=== PATIENT | female | born 1960 | race Hispanic/Latino ===

== ENCOUNTER 2019-10-07 18:36 | Emergency (ER) | payer BC, SELFPAY ==
[2019-10-07 18:55] VITALS: BP 168/58; PULSE 68; RESP 16; TEMP 36.7; O2SAT 98; BMI 24.1
--- NOTE | 2019-10-07 19:21 | ED.ALLEREA ---
HPI - Allergic Reaction General Chief complaint: Allergic Reaction Stated complaint: trouble breathing, nose congested, neck swelling Time Seen by Provider: 10/07/19 19:16 Source: patient and family Mode of arrival: Ambulatory Limitations: no limitations History of Present Illness HPI narrative: 59F former smoker with history of small intestine bacterial overgrowth and chronic abdominal pain presents at the request of her primary care provider, with her for evaluation of neck swelling, trouble swallowing, and trouble breathing yesterday but is slightly improved today. She states that she has been having swelling of her neck for about a month and denies any obvious allergic triggers such as new medications, foods, pets or other. She states that at times the swelling causes pain to radiate up into her ears. She denies any rash. She has chronic abdominal pain that has been evaluated very thoroughly since initially presenting a few years ago. She has had CT scans, evaluations with Gastroenterology, pills studies among other. She states that currently her pain is largely on the left side of her abdomen and is associated with bloating and very episodes of diarrhea and at times constipation. She is frequently nauseated but denies vomiting today. Related Data Allergies Allergy/AdvReac Type Severity Reaction Status Date / Time No Known Drug Allergies Allergy Verified 10/07/19 19:02 Review of Systems Constitutional Constitutional: Denies chills, Denies fatigue, Denies fever(s), Denies frequent falls, Denies lethargy and Denies weakness Eyes Eyes: Denies change in vision, Denies eye discharge, Denies irritation and Denies loss of vision ENT Ears, Nose, Mouth, and Throat: Denies change in voice, Denies dizziness, Denies neck pain, Denies sore throat and Denies throat swelling Cardiovascular Cardiovascular: Denies chest pain, Denies irregular heart rhythm, Denies lightheadedness, Denies palpitations, Denies dyspnea, Denies dyspnea on exertion and Denies orthopnea Respiratory Respiratory: Denies cough, Denies dyspnea, Denies dyspnea on exertion and Denies wheezing Gastrointestinal Gastrointestinal: Denies abdominal pain, Denies change in bowel habits, Denies diarrhea, Denies nausea and Denies vomiting Musculoskeletal Musculoskeletal: Denies neck pain and Denies numbness Integumentary/Breasts Skin/Breast: Denies pruritus, Denies erythema, Denies rash and Denies wounds Neurologic Neurologic: Denies behavioral changes, Denies confusion, Denies dizziness, Denies frequent falls, Denies loss of vision, Denies numbness and Denies weakness Psychiatric Psychiatric: Denies anxiety, Denies behavioral changes, Denies confusion, Denies depression, Denies homicidal ideation and Denies suicidal ideation Endocrine Endocrine: Denies fatigue, Denies flushing and Denies palpitations Hematologic/Lymphatic Hematologic/Lymphatic: Denies easy bruising Allergic/Immunologic Allergic/Immunologic: Denies urticaria, Denies throat swelling and Denies wheezing Patient History Social History Smoking Status: Former smoker Smoking Status: Former smoker alcohol intake frequency: 0-2 drinks per day Substance Use Type: marijuana Exam Narrative Exam Narrative: GENERAL: [59] year old patient appears stated age. Well-nourished, well-developed patient, in mild distress. GCS 15 HEAD: Atraumatic. Normocephalic. EYES: Pupils equal round and reactive. Extraocular motions intact. No scleral icterus. No injection or drainage. ENT: Nose without bleeding, purulent drainage. Throat without erythema, tonsillar hypertrophy or exudate. Airway patent. NECK: Trachea midline. Mildly tender with visible swelling an anterior lymphadenopathy CARDIOVASCULAR: Regular rate and rhythm without murmurs, gallops, or rubs. RESPIRATORY: Clear to auscultation. Breath sounds equal bilaterally. No wheezes, rales, or rhonchi. GASTROINTESTINAL: Abdomen soft, moderate tenderness in the left lower quadrant, nondistended. Bloating EXTREMITIES: No edema or joint tenderness. BACK: Nontender without deformity or crepitance. No flank tenderness. NEURO: AOx3. SKIN: No rash or erythema of visible areas Initial Vital Signs Initial Vital Signs: Vital Signs Temperature 98.0 F 10/07/19 18:55 Pulse Rate 68 10/07/19 18:55 Respiratory Rate 16 10/07/19 18:55 Blood Pressure 168/58 H 10/07/19 18:55 Pulse Oximetry 98 10/07/19 18:55 Course Orders Ordered: Discontinued Medications Dexamethasone (Decadron) 10 mg IV NOW ONE Stop: 10/07/19 19:34 Last Admin: 10/07/19 19:44 Dose: 10 mg Documented by: MMCFARL Sodium Chloride (Normal Saline 0.9%) 1,000 mls @ 1,000 mls/hr IV BOLUS ONE Stop: 10/07/19 20:32 Last Infusion: 10/07/19 20:58 Dose: 0 mls/hr Documented by: Admin: 10/07/19 19:44 Dose: 1,000 mls/hr Documented by: LAURIE Vital Signs Vital signs: Vital Signs - 8 hr 10/07/19 18:55 Temperature 98.0 F Pulse Rate 68 Respiratory Rate 16 Blood Pressure 168/58 H Pulse Oximetry 98 MDM - Allergic Reaction Lab Data Result diagrams: 10/07/19 19:20 10/07/19 19:20 Labs: Lab Results 10/07/19 10/07/19 Range/Units 19:20 19:20 WBC 8.3 (4.5-11.0) X10^3/uL RBC 4.04 (4.0-5.2) X10^6/uL Hgb 13.0 (12.0-16.0) g/dL Hct 37.7 (36-46) % MCV 93.3 (80-100) fL MCH 32.2 (26-34) PG MCHC 34.5 (30-36) % RDW 12.6 (11.6-14.8) % Plt Count 258 (150-400) X10^3/uL Neut % (Auto) 53.4 (50-75) % Lymph % (Auto) 39.8 (25-40) % [place] % (Auto) 4.8 (3-14) % Eos % (Auto) 1.5 L (2-4) % Baso % (Auto) 0.5 (0-2) % Neut # (Auto) 4400 (6091-0188) /uL Lymph # (Auto) 3300 (5705-3901) /uL [place] # (Auto) 400 (0-900) /uL Eos # (Auto) 100 (0-450) /uL Baso # (Auto) 0 (0-100) /uL Sodium 138 (137-145) mmol/L Potassium 3.9 (3.4-5.1) mmol/L Chloride 105 (98-107) mmol/L Carbon Dioxide 25 (22-32) mmol/L BUN 16 (7-17) mg/dL Creatinine 0.76 (0.52-1.04) mg/dL Estimated GFR > 60.0 (>60) mL/min BUN/Creatinine Ratio 21.1 (6-22) Glucose 88 (70-100) mg/dL Calcium 9.9 (8.4-10.2) mg/dL Total Bilirubin 0.4 (0.2-1.3) mg/dL AST 25 (14-36) IU/L ALT 18 (<35) IU/L Alkaline Phosphatase 70 (38-126) U/L NT-Pro-B Natriuret Pep 118 (<125) pg/mL Total Protein 7.9 (6.3-8.2) g/dL Albumin 4.5 (3.5-5.0) g/dL Globulin 3.4 (1.7-4.1) g/dL Albumin/Globulin Ratio 1.3 (1.0-2.8) Lipase 251 (23-300) U/L Urine Dip Bedside Urine Glucose Negative Bedside Urine Bilirubin - Negative Bedside Urine Ketone - Negative Urine Specific [place] 1.010 Bedside Urine Occult Blood - Negative Bedside Urine pH 6.0 Bedside Urine Protein - Negative Bedside Urine Urobilinogen - Negative Bedside Urine Nitrite - Negative Bedside Urine Leukocytes - Negative Esterase Imaging Data Soft Tissue Neck CT: Radiologist's Impression: Chart Viewer Diagnostics DATE TYPE STATUS REF RANGE/AUTHOR Hx 10/07/19 19:33 Julio C Julio 10/07/19 19:33 Julio C Julio Lucrecia 59, F0 1960 [facility], [facility] ED 165.1cm 65.771kg BMI: 24.1kg/m? Allergic Reaction Search Chart No Data to Display No Data to Display ONSET 10/07/19 21:10 Lizzy Sellers 59 F 1960 [place] [address] CT Scan Report Signed Patient: Kenneth SellersDlae#: [id number] : 1960Acct:[id number] Age/Sex: 59 / FDate of Service: 10/07/19 Loc: ED Accession Number: [id number] Procedure: CT soft tissue neck w con Ordering Provider: Tyrone Ricketts D.O. PROCEDURE: CT SOFT TISSUE NECK W CON INDICATIONS: painful swelling of neck, trouble swallowing, breathing TECHNIQUE: After the administration of intravenous contrast, 3.0 mm axial sections acquired from the sella to the aortic arch. Additional oblique axial 3.0 mm sections acquired through the pharynx. 3 mm thick coronal and sagittal reformats were generated. For radiation dose reduction, the following was used: automated exposure control. COMPARISON: [facility], CT, CT CHEST ABD PEL W CON, 10/07/2019, 19:37. FINDINGS: Image quality: Excellent. Lymph nodes: There is a slightly greater than expected number of numerous prominent but not threshold enlarged lymph nodes suggesting shotty reactive lymphadenopathy. There is no threshold enlarged or overtly pathologic lymph nodes by CT size criteria. Vessels: Visualized vasculature appears patent. Neck spaces: The oropharynx, nasopharynx, and pharynx demonstrate no mucosal lesions. The vocal cords, false vocal cords, pyriform sinuses, epiglottis, vallecula, and tongue base all appear normal. Extramucosal spaces appear unremarkable. Glands: There is subjective prominence of the bilateral parotid glands, corresponding in location to the BB markers placed by the research technologist denoting the patient's area of neck swelling bilaterally. Submandibular glands are unremarkable. Right thyroid lobe nodule measuring approximately 1.4 cm. Miscellaneous: Visualized brain and orbits appear normal. Lung apices appear clear. Superficial soft tissues appear normal. Bones: No suspicious bony lesions. Visualized sinuses and mastoids appear unremarkable. IMPRESSION: 1. Subjective low-density infiltration with enlargement of the bilateral parotid glands with no discrete mass or adjacent inflammatory changes. Findings are likely reflective of Sjogren syndrome, sarcoidosis, or some other systemic process. Consider rheumatology referral. 2. Shotty lymphadenopathy in the bilateral neck is likely related, although follow-up to document clinical stability/resolution is recommended to help exclude a less likely but potential lymphoproliferative disorder. Dictated by: Julio C Julio M.D. on 10/07/2019 at 20:04 Approved by: Julio C Julio M.D. on 10/07/2019 at 20:11 CT scan - chest: Radiologist's Impression: Lizzy Sellers 59 F [address] [address] [address] Scan Report Signed Patient: Talita Sellers#: [id number] : 1960Acct:[id number] Age/Sex: 59 / FDate of Service: 10/07/19 Loc: ED Accession Number: [id number] Procedure: CT chest abd pel w con Ordering Provider: Tyrone Ricketts D.O. PROCEDURE: CT CHEST ABD PEL W CON INDICATIONS: Shortness of breath, left flank pain TECHNIQUE: After the administration of intravenous contrast, 5 mm thick sections acquired from the lung apices to the symphysis. 2.5 mm thick coronal and sagittal reformats were acquired. Additional 7 mm thick coronal maximum intensity projection (MIP) reformats acquired through the lungs. Optional 10-minute delayed imaging may be performed from the kidneys to the bladder. For radiation dose reduction, the following was used: automated exposure control, adjustment of mA and/or kV according to patient size. COMPARISON: None. FINDINGS: Image quality: Excellent. CHEST: Central airways, lungs, and pleural spaces are clear. The heart and mediastinal vascular structures are within normal limits. There is no thoracic lymphadenopathy. Thoracic osseous structures unremarkable. ABDOMEN: Normal CT appearance of the liver, spleen, pancreas, gallbladder, adrenal glands, and kidneys. No acute interrogate abnormality. No free fluid or pneumoperitoneum. Nonaneurysmal abdominal aorta. No intra-abdominal or retroperitoneal lymphadenopathy. Regional osseous structures unremarkable. PELVIS: No free pelvic fluid. Unremarkable uterus, adnexa, and urinary bladder. No threshold enlarged pelvic or inguinal lymph node. Regional osseous structures unremarkable. IMPRESSION: No acute finding or abnormality to explain left flank pain. Dictated by: Julio C Julio M.D. on 10/07/2019 at 20:12 Approved by: Julio C Julio M.D. on 10/07/2019 at 20:14 [facility] Narrative Medical decision making narrative: Multiple etiologies for patient's symptoms considered including: [Lymphoma versus retropharyngeal abscess versus hematoma versus allergic reaction versus other] Patient's symptoms improved or duration of stay with above-stated therapies. Findings and discharge diagnosis discussed with patient/family followed by verbalization of understanding Return precautions discussed with patient/family whom verbalize understanding. Discharge Plan Departure Patient Disposition: Home Clinical Impression: Adenopathy, cervical, Abdominal pain, chronic, generalized Discharge Date/Time: 10/07/19 21:10 Instructions: DI for Abdominal Pain-Adult, DI for Lymphadenopathy Activity Restrictions/Additional Instructions: *You have been diagnosed with [swollen lymph nodes in your neck] *What to do: *Follow up with your primary care provider in 2-3 days, call for an appointment. Let them know you were seen in the Emergency Department and that we ask that you be seen in follow up. One of the causes of nonspecific swollen lymph nodes can be a cancerous process called lymphoma. I have given you contact information for a local oncologist for follow-up *Return to ER if you should have any new, worsening or concerning symptoms Referrals: Edi Parson MD [Physician] -
--- NOTE | 2019-10-07 19:33 | DI.CT.S_ITS ---
PROCEDURE: CT CHEST ABD PEL W CON INDICATIONS: Shortness of breath, left flank pain TECHNIQUE: After the administration of intravenous contrast, 5 mm thick sections acquired from the lung apices to the symphysis. 2.5 mm thick coronal and sagittal reformats were acquired. Additional 7 mm thick coronal maximum intensity projection (MIP) reformats acquired through the lungs. Optional 10-minute delayed imaging may be performed from the kidneys to the bladder. For radiation dose reduction, the following was used: automated exposure control, adjustment of mA and/or kV according to patient size. COMPARISON: None. FINDINGS: Image quality: Excellent. CHEST: Central airways, lungs, and pleural spaces are clear. The heart and mediastinal vascular structures are within normal limits. There is no thoracic lymphadenopathy. Thoracic osseous structures unremarkable. ABDOMEN: Normal CT appearance of the liver, spleen, pancreas, gallbladder, adrenal glands, and kidneys. No acute interrogate abnormality. No free fluid or pneumoperitoneum. Nonaneurysmal abdominal aorta. No intra-abdominal or retroperitoneal lymphadenopathy. Regional osseous structures unremarkable. PELVIS: No free pelvic fluid. Unremarkable uterus, adnexa, and urinary bladder. No threshold enlarged pelvic or inguinal lymph node. Regional osseous structures unremarkable. IMPRESSION: No acute finding or abnormality to explain left flank pain. Dictated by: Julio C Julio M.D. on 10/07/2019 at 20:12 Approved by: Julio C Julio M.D. on 10/07/2019 at 20:14
--- NOTE | 2019-10-07 19:33 | DI.CT.S_ITS ---
PROCEDURE: CT SOFT TISSUE NECK W CON INDICATIONS: painful swelling of neck, trouble swallowing, breathing TECHNIQUE: After the administration of intravenous contrast, 3.0 mm axial sections acquired from the sella to the aortic arch. Additional oblique axial 3.0 mm sections acquired through the pharynx. 3 mm thick coronal and sagittal reformats were generated. For radiation dose reduction, the following was used: automated exposure control. COMPARISON: [facility], CT, CT CHEST ABD PEL W CON, 10/07/2019, 19:37. FINDINGS: Image quality: Excellent. Lymph nodes: There is a slightly greater than expected number of numerous prominent but not threshold enlarged lymph nodes suggesting shotty reactive lymphadenopathy. There is no threshold enlarged or overtly pathologic lymph nodes by CT size criteria. Vessels: Visualized vasculature appears patent. Neck spaces: The oropharynx, nasopharynx, and pharynx demonstrate no mucosal lesions. The vocal cords, false vocal cords, pyriform sinuses, epiglottis, vallecula, and tongue base all appear normal. Extramucosal spaces appear unremarkable. Glands: There is subjective prominence of the bilateral parotid glands, corresponding in location to the BB markers placed by the educational technologist denoting the patient's area of neck swelling bilaterally. Submandibular glands are unremarkable. Right thyroid lobe nodule measuring approximately 1.4 cm. Miscellaneous: Visualized brain and orbits appear normal. Lung apices appear clear. Superficial soft tissues appear normal. Bones: No suspicious bony lesions. Visualized sinuses and mastoids appear unremarkable. IMPRESSION: 1. Subjective low-density infiltration with enlargement of the bilateral parotid glands with no discrete mass or adjacent inflammatory changes. Findings are likely reflective of Sjogren syndrome, sarcoidosis, or some other systemic process. Consider rheumatology referral. 2. Shotty lymphadenopathy in the bilateral neck is likely related, although follow-up to document clinical stability/resolution is recommended to help exclude a less likely but potential lymphoproliferative disorder. Dictated by: Julio C Julio M.D. on 10/07/2019 at 20:04 Approved by: Julio C Julio M.D. on 10/07/2019 at 20:11
[2019-10-07 19:44] LABS: Add Manual Diff / Slide Review NO; Basophils Absolute Auto 0 /uL (0-100); Basophils Percent Auto 0.5 % (0-2); Eosinophils Absolute Auto 100 /uL (0-450); Eosinophils Percent Auto 1.5 % (2-4); Hematocrit 37.7 % (36-46); Lymphocytes Absolute Auto 3300 /uL (1100-4500); Lymphocytes Percent Auto 39.8 % (25-40); Mean Corpuscular HGB Conc 34.5 % (30-36); Mean Corpuscular Hemoglobin 32.2 PG (26-34); Mean Corpuscular Volume 93.3 fL (80-100); Monocytes Absolute Auto 400 /uL (0-900); Monocytes Percent Auto 4.8 % (3-14); Neutrophils Absolute Auto 4400 /uL (1500-7000); Neutrophils Percent Auto 53.4 % (50-75); Platelet Count 258 X10^3/uL (150-400); Red Blood Cell Count 4.04 X10^6/uL (4.0-5.2); Red Cell Distribution Width 12.6 % (11.6-14.8); White Blood Cell Count 8.3 X10^3/uL (4.5-11.0)
[2019-10-07] MEDS: SODIUM CHLORIDE 0.9% 1,000 ML 1000 ML IV (19:44)
[2019-10-07] MEDS: DEXAMETHASONE 10 MG/ML VIAL IV (19:44)
[2019-10-07 19:50] LABS: Alanine Aminotransferase 18 IU/L (<35); Albumin 4.5 g/dL (3.5-5.0); Albumin Globulin Ratio 1.3 (1.0-2.8); Alkaline Phosphatase 70 U/L (38-126); Aspartate Aminotransferase 25 IU/L (14-36); BUN Creatinine Ratio 21.1 (6-22); Bilirubin Total 0.4 mg/dL (0.2-1.3); Blood Urea Nitrogen 16 mg/dL (7-17); Calcium 9.9 mg/dL (8.4-10.2); Carbon Dioxide 25 mmol/L (22-32); Chloride 105 mmol/L (98-107); Estimated Glomerular Filt Rate > 60.0 mL/min (>60); Globulin 3.4 g/dL (1.7-4.1); Glucose 88 mg/dL (70-100); HEMOLYSIS < 15 (0-50); Lipase 251 U/L (23-300); Potassium 3.9 mmol/L (3.4-5.1); Sodium 138 mmol/L (137-145); Total Protein 7.9 g/dL (6.3-8.2)
[2019-10-07 19:59] LABS: NT-proBNP (BNP-Adult 18+) 118 pg/mL (<125)
[2019-10-07 20:19] VITALS: PULSE 70; O2SAT 96
[2019-10-07 20:33] VITALS: PULSE 89; O2SAT 94
[2019-10-07 21:10] VITALS: BP 167/102; PULSE 67; O2SAT 99
== END 2019-10-07 21:10 | disposition home or self-care (01) ==
PROVIDERS: Emergency Provider Emergency Medicine
DX: R59.0 Localized enlarged lymph nodes (principal); R10.84 Generalized abdominal pain; R06.02 Shortness of breath
CPT/HCPCS: 36415; 70491; 71260; 74177; 80053; 81003; 83690; 83880; 85025; 96361; 96374; 99284; J1100; Q9967